=== PATIENT | female | born 1960 | race Caucasian/White ===

== ENCOUNTER 2017-06-17 10:11 | Emergency (ER) | payer MEDICAID ==
[~2017-06-17] VITALS: Ht 165.1 cm; Wt 112.4 kg
[2017-06-17 11:00] LABS: HEMATOCRIT 44.2 % (34.6-47.8); HEMOGLOBIN 15.2 g/dL (11.7-16.4); WHITE BLOOD COUNT 13.9 x10^3/uL (3.4-10)
[2017-06-17] MEDS ORDERED: LORazepam 1MG TABLET PO ONE (11:00)
[2017-06-17 11:11] LABS: BLOOD UREA NITROGEN 15 mg/dL (7-18)
[2017-06-17 11:15] VITALS: BP 146/84
== END 2017-06-17 12:31 | disposition home or self-care (01) ==
LOC: ED 10:46
DX: F41.9 Anxiety disorder, unspecified (principal); F43.0 Acute stress reaction
CPT/HCPCS: 36415; 70450; 80048; 82040; 85025; 99285